=== PATIENT | female | born 1935 | race Caucasian/White ===

== ENCOUNTER 2016-10-26 12:27 | Emergency (ER) | payer MEDICARE, SELFPAY ==
[2016-10-26 13:20] VITALS: TEMP 97.6; BMI 46.5
[2016-10-26 13:52] LABS: LEUKOCYTES/URINE 2+ (NEGATIVE); NITRITE/URINE NEG (NEGATIVE); URINE OCCULT BLOOD 1+ (NEG/TRACE); WBC/URINE TNTC (0-5)
[2016-10-26] MEDS ORDERED: OXYCODONE HCL 5 MG TABLET PO ONE (16:51)
[2016-10-26] MEDS ORDERED: CIPROFLOXACIN HCL 500 MG TAB PO ONE (16:52)
[2016-10-26] MEDS ORDERED: IBUPROFEN 800 MG TAB PO ONE (17:27)
--- NOTE | 2016-10-26 17:34 | EDPRACDOC ---
- General Chief Complaint: Fall Stated Complaint: BACK PAIN, STATED FALL THIS AM Time Seen by Provider: 10/26/16 16:47 Information Source: Patient - History of Present Illness Onset: 6 am HPI: PT FELL THIS AM AROUND 0600. SHE HAS PAIN IN HER BACK AND IN HER KNEES FROM HER FALL. SHE ALSO HAS HAD SOME URINARY FREQUENCY. Pain Severity: Reports: Mild Injuries/Pain Location: Reports: no injury Reason for Fall: Reports: tripped Loss of Consciousness: no loss of consciousness Allergies/Adverse Reactions: Allergies canagliflozin [From Invokana] Allergy (Verified 10/26/16 13:21) Nausea/Vomiting rivaroxaban [From Xarelto] Allergy (Verified 10/26/16 13:21) Nausea/Vomiting Home Medications: Ambulatory Orders Fenofibrate [Tricor] 145 mg PO HS 02/23/13 Pantoprazole Sodium [Protonix] 40 mg PO QAM 02/23/13 Spironolactone [Aldactone] 25 mg PO QAM 02/23/13 Trazodone HCl [Desyrel] 75 mg PO HS PRN 02/23/13 [id number]-2-[id number] Ethyl Esters [Lovaza (Huntly-3 Acid Ethyl Esters)] 1,000 mg PO BID 07/23/13 Pravastatin [Pravachol] 80 mg PO HS 07/23/13 Escitalopram Oxalate [Lexapro] 20 mg PO HS 02/02/15 Furosemide [Lasix] 20 mg PO .QNOON 02/02/15 Gabapentin [Neurontin] 600 mg PO HS 02/02/15 Hydrocodone Bit/Acetaminophen [Springer 7.5-325 Tablet] 1 tab PO Q6H PRN 02/02/15 Losartan Potassium [Cozaar] 50 mg PO HS 02/02/15 Saxagliptin HCl [Onglyza] 2.5 mg PO QAM 02/02/15 Febuxostat [Uloric] 80 mg PO QAM 02/22/15 Probiotic Blend [Mi Q] 1 tab PO DAILY 02/22/15 Warfarin Sodium [Coumadin] 6 mg PO DAILY 02/22/15 Multivitamin [One Daily] 1 tab PO DAILY 04/15/16 Cephalexin Monohydrate [Keflex] 500 mg PO Q6H #28 cap 08/14/16 Insulin Glargine [Lantus Pen] 20 unit SQ QHS 08/14/16 Ketoprofen 50 mg PO BID PRN #20 capsule 08/14/16 Metoprolol Succinate [Toprol Xl] 75 mg PO DAILY 08/14/16 Phenazopyridine [Pyridium] 200 mg PO TID #6 tab 08/14/16 Ciprofloxacin HCl [Cipro] 500 mg PO BID #14 tab 10/26/16 Lactobacillus Combo No.11 [Probiotic] 1 each PO DAILY #30 cap.sprink 10/26/16 Oxycodone HCl [Roxicodone] 5 mg PO Q6H #15 tablet 10/26/16 ED Past Medical History - Patient Medical History Neurological History: Reports: Dementia (mild, forgetful at times) Cardiac History: Reports: Hypertension, Congestive Heart Failure, Hypercholesterolemia Respiratory History: Reports: Pneumonia (02/05/2015), Pulmonary Embolism (x 2 ON COUMADIN) GI/ History: Reports: Renal Disease (CKD-2), Urinary Tract Infection (x 20 years), Gastroesophageal Reflux, Ulcer Musculoskeletal History: Reports: Arthritis (OSTEOARTHRITIS, spinal stenosis), Gout, Osteoarthritis Psychological History: Reports: Depression, Anxiety. Denies: Substance Use Disorder Systemic History: Reports: Cancer (Melanoma), Diabetes Surgical History: Reports: Cholecystectomy, Hysterectomy, Hernia Surgery, Other (L knee breast biopsy x 2,) - Family Medical History Reports: Hypertension (Maternal grandmother), Diabetes, Stroke (Maternal GM), Cardiac Disorders (Father of heart disease). Denies: Cancer - Social Medical History Smoking Status: Never smoker Social History: Denies: Substance Use Disorder ETOH: None Substance Abuse: None Lives In: Home EDM Review of Systems - Review of Systems ROS Negative Except as Marked: Yes All systems reviewed and were negative except as marked Genitourinary: Dysuria, Frequency Musculoskeletal: Back, Hip, Knee - Physical Exam Constitutional: Alert (Awake), No apparent distress Oriented to: Time, Person, Place Last recorded Vital Signs: Last Vital Signs Temp 97.6 F 10/26/16 13:17 Pulse 85 10/26/16 16:34 Resp 20 10/26/16 16:34 BP 151/65 10/26/16 16:34 Pulse Ox 94 10/26/16 16:34 Oxygen Pulse Oxygen Saturation 94 O2 Device Room Air Oxygen Flow Rate Fraction of Inspired Oxygen ( FIO2) - HEENT Head: Normal ( normocephalic) Eye Exam: Normal (PERRL, EOMI, Sclera white) Oropharynx: Normal (Pharynx:Moist without exudate,Gums-no swelling) ENT EAC: Normal TMJ: Normal Nose: No Symptoms Reported (septum midline) Neck: Normal (FROM, trachea at midline) - Respiratory/Cardiovascular Respiratory: Normal - CTA (BBS clear to auscultation without adventitious sounds ) Cardiovascular: Normal (RRR without murmur, gallop or rub) - GI Auscultation: Normal (NABS) Palpation: Normal (Soft,No rebound or guarding, non distended) Tenderness: Non tender Wilder's Sign: Negative - Musculoskeletal Back: Lumbar TTP Extremities: Pedal Edema, Other (LEGS WRAPPED IN UNNA BOOTS) Musculoskeletal Comment: BILATERAL KNEE ABRASIONS - Integumentary Skin: Normal, Warm, Dry Lymphatics: Normal (no adenopathy) - Neurologic Memory Impaired: Normal Motor Function: Normal (Normal tone, Pulses 2+ No cyanosis or edema, FROM) Cranial Nerve: Normal (CN II-X11 intact sensation, strength 5/5) Cerebellar: Normal Mood Description: Normal Perception: Normal - Results Urine Color Yellow 10/26/16 13:07 Urine Clarity Cldy 10/26/16 13:07 Urine pH 6.0 (5.0-8.0) 10/26/16 13:07 Ur Specific [place] 1.015 (1.003-1.035) 10/26/16 13:07 Urine Protein 1+ (NEG/TRACE) H 10/26/16 13:07 Urine Glucose (UA) Trace (NEGATIVE) 10/26/16 13:07 Urine Ketones Neg (NEGATIVE) 10/26/16 13:07 Urine Occult Blood 1+ (NEG/TRACE) H 10/26/16 13:07 Urine Nitrite Neg (NEGATIVE) 10/26/16 13:07 Urine Bilirubin Neg (NEGATIVE) 10/26/16 13:07 Urine Urobilinogen <2.0 MG/DL (0-1) 10/26/16 13:07 Ur Leukocyte Esterase 2+ (NEGATIVE) H 10/26/16 13:07 Urine RBC 5-10 (0-5) H 10/26/16 13:07 Urine WBC Tntc (0-5) H 10/26/16 13:07 Urine WBC Clumps Present (NONE) H 10/26/16 13:07 Ur Epithelial Cells 2+ 10/26/16 13:07 Urine Bacteria 2+ (NEG/FEW) H 10/26/16 13:07 Urine Mucus Sm amt (NEG/OCC) 10/26/16 13:07 Lab Results 10/26/16 13:07 Urine Color Yellow Urine Clarity Cldy Urine pH 6.0 Ur Specific [place] 1.015 Urine Protein 1+ H Urine Glucose (UA) Trace Urine Ketones Neg Urine Occult Blood 1+ H Urine Nitrite Neg Urine Bilirubin Neg Urine Urobilinogen <2.0 Ur Leukocyte Esterase 2+ H Urine RBC 5-10 H Urine WBC Tntc H Urine WBC Clumps Present H Ur Epithelial Cells 2+ Urine Bacteria 2+ H Urine Mucus Sm amt - Diagnostic Imaging Hip Image interpreted by: Radiologist No fracture or dislocation of the pelvis or right hip. Knee Image interpreted by: Radiologist RIGHT: Moderate to advanced tricompartmental osteoarthritis. No acute fracture or dislocation. LEFT: Status post total knee replacement with prosthetic components appearing well-seated. No acute fracture or dislocation. No joint effusion. Areas of myositis ossificans. Soft tissue swelling noted. L-Spine Image interpreted by: Radiologist Degenerative changes without acute abnormality. Decision Time to Discharge: 19:07 - Departure Yes I personally saw and evaluated the patient. Disposition: Home Condition: Fair Final Diagnosis: Accidental fall, UTI (urinary tract infection), BILATERAL KNEE CONTUSION, Lumbar strain Instructions: Urinary Tract Infection in Women (ED), RICE: Routine Care for Injuries, Thoracic (Lumbar) Strain Education/Counseling Given To: Patient Education/Counseling Given Regarding: Diagnosis, Treatment, Follow Up Referrals: Mayda Vazquez MD [Primary Care Provider] - One Week Prescriptions: Ciprofloxacin HCl [Cipro] 500 mg PO BID #14 tab Lactobacillus Combo No.11 [Probiotic] 1 each PO DAILY #30 cap.sprink Oxycodone HCl [Roxicodone] 5 mg PO Q6H #15 tablet
--- NOTE | 2016-10-26 18:13 | DIRPT ---
CLINICAL DATA: Fall this morning 12 hours prior, now with lumbosacral, knee, and right hip pain. EXAM: RIGHT HIP (WITH PELVIS) 2-3 VIEWS COMPARISON: None. FINDINGS: The cortical margins of the bony pelvis and right hip are intact. No fracture. Pubic symphysis and sacroiliac joints are congruent. Both femoral heads are well-seated in the respective acetabula. Multifocal chronic enthesopathic change noted. Tacks from hernia repair noted. IMPRESSION: No fracture or dislocation of the pelvis or right hip. Electronically Signed By: Hoa Fields M.D. On: 10/26/2016 18:10
--- NOTE | 2016-10-26 18:58 | DIRPT ---
CLINICAL DATA: Fall this morning with low back pain, initial encounter EXAM: LUMBAR SPINE - COMPLETE 4+ VIEW COMPARISON: None. FINDINGS: Five lumbar type vertebral bodies are well visualized. Vertebral body height is well maintained. Disc space narrowing and osteophytic changes are noted at all levels. No significant anterolisthesis is noted. Mild aortic calcifications are seen without aneurysmal dilatation. IMPRESSION: Degenerative changes without acute abnormality. Electronically Signed By: Sudhakar Nash M.D. On: 10/26/2016 18:55
--- NOTE | 2016-10-26 18:59 | DIRPT ---
CLINICAL DATA: Pain following fall EXAM: LEFT KNEE - COMPLETE 4+ VIEW COMPARISON: February 02, 2005 FINDINGS: Frontal, lateral, and bilateral oblique views were obtained. Patient is status post total knee replacement with the femoral and tibial prosthetic components appearing well-seated. There is soft tissue swelling in the knee region. Head there is no acute fracture or dislocation. There is no appreciable joint effusion. Areas of bony overgrowth are likely due to the previous surgery with areas of myositis ossificans. IMPRESSION: Status post total knee replacement with prosthetic components appearing well-seated. No acute fracture or dislocation. No joint effusion. Areas of myositis ossificans. Soft tissue swelling noted. Electronically Signed By: Gareth Duron III, M.D. On: 10/26/2016 18:56
--- NOTE | 2016-10-26 19:01 | DIRPT ---
CLINICAL DATA: Fall this morning, now with bilateral knee pain. EXAM: RIGHT KNEE - COMPLETE 4+ VIEW COMPARISON: None. FINDINGS: Moderate to advanced tricompartmental osteoarthritis. Narrowing of the medial and patellofemoral joint spaces. Large peripheral tricompartmental osteophytes. No evidence of acute fracture. Quadriceps and patellar tendon enthesophytes are noted. Question of intra-articular bodies in the intercondylar notch. A joint effusion is seen. IMPRESSION: Moderate to advanced tricompartmental osteoarthritis. No acute fracture or dislocation. Electronically Signed By: Hoa Fields M.D. On: 10/26/2016 18:58
[2016-10-26 19:32] VITALS: BP 160/66; PULSE 78
== END 2016-10-26 19:24 | disposition home or self-care (01) ==
LOC: ED 12:27
DX: S39.012A Strain of muscle, fascia and tendon of lower back, initial encounter (principal); S80.02XA Contusion of left knee, initial encounter; S80.01XA Contusion of right knee, initial encounter; W01.0XXA Fall on same level from slipping, tripping and stumbling without subsequent striking against object, initial encounter; N39.0 Urinary tract infection, site not specified; F03.90 Unspecified dementia, unspecified severity, without behavioral disturbance, psychotic disturbance, mood disturbance, and anxiety; I10 Essential (primary) hypertension; I50.9 Heart failure, unspecified; E78.00 Pure hypercholesterolemia, unspecified; F32.9 Major depressive disorder, single episode, unspecified; F41.9 Anxiety disorder, unspecified; E11.9 Type 2 diabetes mellitus without complications; Z86.711 Personal history of pulmonary embolism; Z79.01 Long term (current) use of anticoagulants; Z79.899 Other long term (current) drug therapy; Z79.4 Long term (current) use of insulin
CPT/HCPCS: 72110; 73502; 73564; 81001; 82962; 87077; 87086; 87186; 99283; A9270; J3490